=== PATIENT | male | born 1945 | race Caucasian/White ===

== ENCOUNTER → 2017-04-27 | Emergency (ER) | payer OTHER ==
[~2017-04-27] VITALS: Ht 165.1 cm; Wt 87.5 kg
[~2017-04-27] MED LIST: DICLOFENAC SODI50 MG PO; LISINOPRIL20 MG; MEDROLPACK PO; NORFLEX100MG PO; PNEU16DI2; TRAMADOL HCL50 MG
== END | disposition home or self-care (01) ==
LOC: ER 10:52
DX: M54.89 Other dorsalgia (principal); R30.0 Dysuria

== ENCOUNTER 2017-12-31 17:12 | Emergency (ER) | payer OTHER ==
[~2017-12-31] VITALS: Ht 167.6 cm; Wt 86.2 kg
[2017-12-31] MEDS ORDERED: CARDURA1 MG (18:00)
[2017-12-31] MEDS ORDERED: METFORMIN HCL500 MG (18:00)
[2017-12-31] MEDS ORDERED: LIPITOR20 MG (18:01)
[2017-12-31] MEDS ORDERED: SKELAXIN800 MG PO (21:39)
[2017-12-31] MEDS ORDERED: TORADOL60 MG IM (21:39)
[2017-12-31] MEDS ORDERED: PERCOCET 5-3251 EACH PO (21:39)
== END 2017-12-31 22:00 | disposition home or self-care (01) ==
LOC: ER 17:12
DX: M54.32 Sciatica, left side (principal)